=== PATIENT | female | born 1965 | race Caucasian/White ===

== ENCOUNTER 2017-07-12 16:16 | Inpatient (IN) | payer MEDICAID, OTHER ==
--- NOTE | 2017-07-12 18:16 | ED Physician Chart ---
ED Chief Complaint/HPI - Patient Information Date Seen:: 07/12/17 Time Seen:: 16:50 Chief Complaint:: Diarrhea History of Present Illness:: onset x 2 days of multiple episodes of diarrhea, hematochezia, melena, nausea, weakness, dizziness, and intermittent, diffuse, crampy, abdominal pain; pt denies H/As, neck pain, C/P, SOB, cough, A/V/C, fever, chills, or urinary s/s Allergies:: Allergies Allergy/AdvReac Type Severity Reaction Status Date / Time ketorolac [From Toradol] Allergy Verified 07/12/17 16:47 diphenhydramine AdvReac Verified 07/12/17 16:48 [From Benadryl] Vitals:: Vital Signs - 8 hr 07/12/17 16:48 Temp 98.4 F HR 106 RR 16 BP 112/78 O2 Sat % 98 Historian:: Patient, Family Member Review:: Nurse's Note Reviewed <Farrukh Kang - Last Filed: 07/12/17 18:17> - Patient Information Allergies:: Allergies Allergy/AdvReac Type Severity Reaction Status Date / Time ketorolac [From Toradol] Allergy Verified 07/12/17 16:47 diphenhydramine AdvReac Verified 07/12/17 16:48 [From Benadryl] <Tiara Kc - Last Filed: 07/21/17 11:20> ED Review of Systems - Review of Systems General/Constitutional: No fever, No chills, No weight loss, No weakness, No diaphoresis, No edema, No loss of appetite Skin: No skin lesions, No rash, No bruising Head: No headache, No light-headedness Eyes: No loss of vision, No pain, No diplopia ENT: No earache, No nasal drainage, No sore throat, No tinnitus Neck: No neck pain, No swelling, No thyromegaly, No stiffness, No mass noted Cardio Vascular: No chest pain, No palpitations, No PND, No orthopnea, No edema Pulmonary: No SOB, No cough, No sputum, No wheezing GI: Nausea, Vomiting, Diarrhea, Pain, Melena, Hematochezia, No constipation, No hematemesis G/U: No dysuria, No frequency, No hematuria, No nacturia Analytics Director: No vaginal discharge, No abnormal vaginal bleed, No contraction Musculoskeletal: No bone or joint pain, No back pain, No muscle pain Endocrine: Polyuria, Polydipsia Psychiatric: Prior psych history, No depression, Anxiety, No suicidal ideation, No homicidal ideation, No auditory hallucination, No visual hallucination Hematopoietic: No bruising, No lymphadenopathy Allergic/Immuno: No urticaria, No angioedema Neurological: No syncope, No focal symptoms, Weakness, No paresthesia, No headache, No seizure, Dizziness, No confusion, No vertigo <Farrukh Kang - Last Filed: 07/12/17 18:17> ED Past Medical History - Past Medical History Obtainable: Yes Past Medical History: HTN, DM, Thyroid disorder Family History: Diabetes Melitus, HTN Social History: Non Smoker, No Alcohol, No Drug Use, Surgical History: Hysterectomy Psychiatricy History: None, Other Medication: Reviewed <Farrukh Kang - Last Filed: 07/12/17 18:17> Family Medical History - Family Member Father Ethnicity: Living Status: Other Medical History: pna <Tiara Kc - Last Filed: 07/21/17 11:20> ED Physical Exam - Physical Examination General/Constitutional: Awake, Well-developed, well-nourished, Alert, No distress, GCS 15, Non-toxic appearing, Ambulatory Head: Atraumatic Eyes: Lids, conjuctiva normal, PERRL, EOMI Skin: Nl inspection, No rash, No skin lesions, No ecchymosis, Well hydrated, No lymphadenopathy ENMT: External ears, nose nl, TM canals nl, Nasal exam nl, Lips, teeth, gums nl , Oropharynx nl, Tonsils nl Neck: Nontender, Full ROM w/o pain, No JVD, No nuchal rigidity, No bruit, No mass, No stridor Respiratory: Nl effort/Exclusion, Clear to Auscultation, No Wheeze/Rhonchi/Rales Cardio Vascular: RRR, No murmur, gallop, rubs, NL S1 S2, Carotid/Femoral/Distal pulses equal bilaterally GI: No tenderness/rebounding/guarding, No organomegaly, No hernia, Normal BS's, Nondistended, No mass/bruits, No McBurney tenderness : No CVA tenderness Extremities: No tenderness or effusion, Full ROM, normal strength in all extremities, No edema, Normal digits & nails Neuro/Psych: Alert/oriented, DTR's symmetric, Normal sensory exam, Normal motor strength, Judgement/insight normal, Mood normal, Normal gait, No focal deficits Misc: Normal back, No paraspinal tenderness <Farrukh Kang - Last Filed: 07/12/17 18:17> ED Labs/Radiology/EKG Results - Lab Results Results: Laboratory Tests 07/12/17 16:56 POC Glucose 437 H <Farrukh Kang - Last Filed: 07/12/17 18:17> - Lab Results Results: Laboratory Tests 07/12/17 07/12/17 07/12/17 16:56 18:35 18:35 WBC 7.2 RBC 4.17 Hgb 12.7 Hct 38.0 L MCV 91.3 MCH 30.5 MCHC Differential 33.5 RDW 11.8 Plt Count 224 MPV 8.8 Neutrophils % 65.8 Lymphocytes % 25.7 Monocytes % 6.4 Eosinophils % 1.5 Basophils % 0.6 PT 9.0 L INR 0.88 Sodium Potassium Chloride Carbon Dioxide Anion Gap BUN Creatinine Est GFR ( Amer) Est GFR (Non-Af Amer) BUN/Creatinine Ratio Glucose POC Glucose 437 H Hemoglobin A1c % Calcium Total Bilirubin AST ALT Alkaline Phosphatase Creatine Kinase Troponin I B-Natriuretic Peptide Total Protein Albumin Globulin Albumin/Globulin Ratio Triglycerides Cholesterol LDL Cholesterol Direct HDL Cholesterol Amylase Lipase Serum , Qual Urine Source Urine Color Urine Clarity Urine pH Ur Specific [place] Urine Protein Urine Glucose (UA) Urine Ketones Urine Blood Urine Nitrate Urine Bilirubin Urine Urobilinogen Ur Leukocyte Esterase Urine RBC Urine WBC Ur Epithelial Cells Urine Bacteria Urine Test Serum Ketones 07/12/17 07/12/17 07/12/17 18:35 18:35 18:35 WBC RBC Hgb Hct MCV MCH MCHC Differential RDW Plt Count MPV Neutrophils % Lymphocytes % Monocytes % Eosinophils % Basophils % PT INR Sodium 130 L Potassium 4.8 Chloride 98 Carbon Dioxide 23.3 Anion Gap 13.5 BUN 48 H Creatinine 2.4 H Est GFR ( Amer) 27.1 Est GFR (Non-Af Amer) 22.4 BUN/Creatinine Ratio 20.0 Glucose 531 H* POC Glucose Hemoglobin A1c % Calcium 9.2 Total Bilirubin 0.3 AST 11 L ALT 11 Alkaline Phosphatase 105 H Creatine Kinase 35 Troponin I < 0.01 L B-Natriuretic Peptide 6.6 Total Protein 6.6 Albumin 3.9 Globulin 2.7 Albumin/Globulin Ratio 1.4 Triglycerides 393 H Cholesterol 159 LDL Cholesterol Direct 72 L HDL Cholesterol 34 Amylase Lipase Serum , Qual Urine Source Urine Color Urine Clarity Urine pH Ur Specific [place] Urine Protein Urine Glucose (UA) Urine Ketones Urine Blood Urine Nitrate Urine Bilirubin Urine Urobilinogen Ur Leukocyte Esterase Urine RBC Urine WBC Ur Epithelial Cells Urine Bacteria Urine Test Serum Ketones 07/12/17 07/12/17 07/12/17 18:35 18:35 18:35 WBC RBC Hgb Hct MCV MCH MCHC Differential RDW Plt Count MPV Neutrophils % Lymphocytes % Monocytes % Eosinophils % Basophils % PT INR Sodium Potassium Chloride Carbon Dioxide Anion Gap BUN Creatinine Est GFR ( Amer) Est GFR (Non-Af Amer) BUN/Creatinine Ratio Glucose POC Glucose Hemoglobin A1c % Calcium Total Bilirubin AST ALT Alkaline Phosphatase Creatine Kinase Troponin I B-Natriuretic Peptide Total Protein Albumin Globulin Albumin/Globulin Ratio Triglycerides Cholesterol LDL Cholesterol Direct HDL Cholesterol Amylase 47 Lipase 75 Serum , Qual NEGATIVE Urine Source Urine Color Urine Clarity Urine pH Ur Specific [place] Urine Protein Urine Glucose (UA) Urine Ketones Urine Blood Urine Nitrate Urine Bilirubin Urine Urobilinogen Ur Leukocyte Esterase Urine RBC Urine WBC Ur Epithelial Cells Urine Bacteria Urine Test Serum Ketones NEGATIVE 07/12/17 07/12/17 07/12/17 18:35 20:50 20:50 WBC RBC Hgb Hct MCV MCH MCHC Differential RDW Plt Count MPV Neutrophils % Lymphocytes % Monocytes % Eosinophils % Basophils % PT INR Sodium Potassium Chloride Carbon Dioxide Anion Gap BUN Creatinine Est GFR ( Amer) Est GFR (Non-Af Amer) BUN/Creatinine Ratio Glucose POC Glucose Hemoglobin A1c % 12.3 H Calcium Total Bilirubin AST ALT Alkaline Phosphatase Creatine Kinase Troponin I B-Natriuretic Peptide Total Protein Albumin Globulin Albumin/Globulin Ratio Triglycerides Cholesterol LDL Cholesterol Direct HDL Cholesterol Amylase Lipase Serum , Qual Urine Source CLEAN C Urine Color YELLOW Urine Clarity CLEAR Urine pH 5.5 Ur Specific [place] 1.010 Urine Protein NEGATIVE Urine Glucose (UA) >=1000 H Urine Ketones NEGATIVE Urine Blood NEGATIVE Urine Nitrate NEGATIVE Urine Bilirubin NEGATIVE Urine Urobilinogen 0.2 Ur Leukocyte Esterase TRACE H Urine RBC NONE SEEN Urine WBC 2-5 Ur Epithelial Cells NONE SEEN Urine Bacteria NONE SEEN Urine Test NEGATIVE Serum Ketones 07/12/17 22:33 WBC RBC Hgb Hct MCV MCH MCHC Differential RDW Plt Count MPV Neutrophils % Lymphocytes % Monocytes % Eosinophils % Basophils % PT INR Sodium Potassium Chloride Carbon Dioxide Anion Gap BUN Creatinine Est GFR ( Amer) Est GFR (Non-Af Amer) BUN/Creatinine Ratio Glucose POC Glucose 337 H Hemoglobin A1c % Calcium Total Bilirubin AST ALT Alkaline Phosphatase Creatine Kinase Troponin I B-Natriuretic Peptide Total Protein Albumin Globulin Albumin/Globulin Ratio Triglycerides Cholesterol LDL Cholesterol Direct HDL Cholesterol Amylase Lipase Serum , Qual Urine Source Urine Color Urine Clarity Urine pH Ur Specific [place] Urine Protein Urine Glucose (UA) Urine Ketones Urine Blood Urine Nitrate Urine Bilirubin Urine Urobilinogen Ur Leukocyte Esterase Urine RBC Urine WBC Ur Epithelial Cells Urine Bacteria Urine Test Serum Ketones <Tiara Kc - Last Filed: 07/21/17 11:20> ED Assessment - Assessment General Assessment: UTI Uncontrolled DM II Assessment/Comments:: CBC, CMP, UA, HbA1c Zofran Pantoprazole Rocephin Insulin R sliding scale Admit to med surg <Tiara Kc - Last Filed: 07/21/17 11:20> ED Septic Shock - . Is Septic Shock (SBP<90, OR Lactate>4 mmol\L) present?: No - <6hrs of presentation: Vital Signs: Vital Signs - 8 hr 07/12/17 16:48 Temp 98.4 F HR 106 RR 16 BP 112/78 O2 Sat % 98 <Farrukh Kang - Last Filed: 07/12/17 18:17> - . Is Septic Shock (SBP<90, OR Lactate>4 mmol\L) present?: No <Tiara Kc - Last Filed: 07/21/17 11:20> ED Reassessment (Disposition) - Reassessment Reassessment Condition:: Improved - Patient Disposition Discharge/Transfer:: Acute Care w/in this hosp Admitting Medical Physician:: Marybeth Jackson <Tiara Kc - Last Filed: 07/21/17 11:20> ED Discharge Plan <Farrukh Kang - Last Filed: 07/12/17 18:17> <Tiara Kc - Last Filed: 07/21/17 11:20> - Patient Disposition Admit/Discharge/Transfer: Acute Care w/in this hosp Condition at Disposition: Stable
[2017-07-12] MEDS ORDERED: Sodium Chloride 0.9% 1,000 ML IV ONE (18:21)
[2017-07-12 18:42] LABS: % BASOPHILS 0.6 % (0.0-2.0); % EOSINOPHILS 1.5 % (0.0-5.0); % LYMPHOCYTES 25.7 % (20.0-50.0); % MONOCYTES 6.4 % (2.0-10.0); % NEUTROPHILS 65.8 % (40.0-80.0); EOSINOPHILE ABSOLUTE 0.1 Th/cmm (0.1-0.4); HEMOGLOBIN 12.7 gm/dL (12-16); LYMPHOCYTE ABSOLUTE 1.9 Th/cmm (1.5-3.0); MEAN CELL VOLUME 91.3 fl (81-100); MEAN CORPUSCULAR HEMOGLOBIN 30.5 pg (27.0-31.0); MEAN CORPUSCULAR HGB CONC 33.5 pg (28.0-36.0); MEAN PLATELET VOLUME 8.8 fl; MONOCYTE ABSOLUTE 0.5 Th/cmm (0.3-1.0); NEUTROPHILE ABSOLUTE 4.7 Th/cmm (1.8-8.0); PLATELET COUNT 224 Th/cmm (150-400); RED BLOOD COUNT 4.17 Mil/cmm (3.80-5.10); RED CELL DISTRIBUTION WIDTH 11.8 % (11.5-20.0); WHITE BLOOD COUNT 7.2 Th/cmm (4.8-10.8)
[2017-07-12 18:57] LABS: INR 0.88 (0.5-1.4)
[2017-07-12 19:01] LABS: ALB/GLOB RATIO 1.4 (1.0-1.8); ALBUMIN 3.9 gm/dL (3.7-5.3); AMYLASE SERUM 47 U/L (29-103); ANION GAP 13.5 (7.0-16.0); BILIRUBIN,TOTAL 0.3 mg/dL (0.3-1.0); CALCIUM SERUM 9.2 mg/dL (8.6-10.3); CARBON DIOXIDE 23.3 mEq/L (21.0-31.0); CREATININE - SERUM 2.4 mg/dL (0.6-1.2); GFR AFRICAN-AMERICAN 27.1 ml/min (>90); GFR NON AFRICAN-AMERICAN 22.4 ml/min; LIPASE 75 U/L (11-82); POTASSIUM SERUM 4.8 mEq/L (3.5-5.1); TOTAL PROTEIN,SERUM 6.6 gm/dL (6.0-8.3)
[2017-07-12] MEDS ORDERED: INSULIN HUMAN REGULAR 100 UNITS/ML UNIT SUBQ ONE (19:23)
[2017-07-12] MEDS ORDERED: INSULIN HUMAN REGULAR 100 UNITS/ML UNIT ONE (20:18)
[2017-07-12 21:07] LABS: URINE MICROSCOPIC INDICATED? YES; URINE SOURCE CLEAN C
[2017-07-12 21:13] LABS: URINE BILIRUBIN NEGATIVE (NEGATIVE); URINE BLOOD NEGATIVE (NEGATIVE); URINE GLUCOSE (UA) >=1000 mg/dL (NEGATIVE); URINE KETONE NEGATIVE (NEGATIVE); URINE LEUKOCYTE ESTERASE TRACE (NEGATIVE); URINE NITRATE NEGATIVE (NEGATIVE); URINE PH 5.5 (4.6 - 8.0); URINE PROTEIN NEGATIVE (NEGATIVE); URINE UROBILINOGEN 0.2 E.U./dL (0.2 - 1.0)
[2017-07-12 21:37] LABS: URINE CLARITY CLEAR (CLEAR); URINE COLOR YELLOW
[2017-07-12 21:40] LABS: URINE BACTERIA NONE SEEN /hpf (NONE SEEN); URINE EPITHELIAL CELLS NONE SEEN /lpf (FEW); URINE RBC NONE SEEN /hpf (0-5)
[2017-07-12] MEDS ORDERED: cefTRIAXone 1 GM in Sodium Chloride 0.9% 50 ML IV ONE (22:04)
[2017-07-12] MEDS ORDERED: Sodium Chloride 0.9% 1,000 ML IV SCH (23:20)
--- NOTE | 2017-07-13 05:26 | Consultation ---
DATE OF CONSULTATION: 07/12/2017 INFECTIOUS DISEASE CONSULTATION REFERRING PHYSICIAN: Marybeth Jackson M.D. REASON FOR CONSULTATION: Diarrhea. HISTORY OF PRESENT ILLNESS: The patient is a 52-year-old female with a past medical history of hypertension, diabetes mellitus type 2, thyroid disorder, admitted for multiple episodes of diarrhea, it was associated with intermittent crampy abdominal pain. On initial evaluation, the patient was afebrile and WBC count was 7200. The patient was started on Rocephin and ID consult was called for further antibiotic management. Currently, the patient's diarrhea has stopped. The patient also looks hungry. PAST MEDICAL HISTORY: Diabetes mellitus type 2, hypertension, and thyroid disorder. ALLERGIES: KETOROLAC AND DIPHENHYDRAMINE. SOCIAL HISTORY: The patient lives at home. The patient is active smoker. Denies any alcohol or drug use. FAMILY HISTORY: Hypertension and diabetes mellitus. REVIEW OF SYSTEMS: GENERAL: The patient has no fever, no chills. HEENT: No diplopia, no photophobia, no sore throat. RESPIRATORY: No cough, no shortness of breath. CARDIOVASCULAR: No chest pain or palpitation. GASTROINTESTINAL: The patient has no abdominal pain. The patient is presented with diarrhea and crampy abdominal pain, which has resolved. EXTREMITIES: No cyanosis. MUSCULOSKELETAL: No muscle pain, no joint pain. NEUROLOGICAL: No headache, no dizziness, no focal weakness. PHYSICAL EXAMINATION: VITAL SIGNS: Current vital signs shows temperature is 98.4 degrees Fahrenheit, pulse 85, respirations is 13, blood pressure 122/83, oxygen saturation 98%. GENERAL: The patient is comfortable lying in the bed, not in acute distress. HEENT: Head is normocephalic, atraumatic. Oral cavity moist, pink tongue. Eyes: No pallor, no icterus. Pupils PERRLA, EOMI. NECK: Supple, no JVD, no carotid bruit. Trachea in midline. CHEST: Bilateral breath sounds. No crackles or wheezing. HEART: S1, S2 within normal limits. Regular rhythm. No murmur, no gallop. ABDOMEN: Soft, nontender, nondistended. Bowel sounds present. EXTREMITIES: No cyanosis, no clubbing, no edema. NEUROLOGIC: Alert, awake, oriented x 3. LABORATORY DATA: Current lab shows WBC count is 7200, hemoglobin 12.7, hematocrit 38, platelets are 224,000, neutrophil is 65.8%. Sodium is 130, potassium 4.8, chloride 98, bicarbonate is 23.3, BUN is 48, creatinine 2.4, glucose is 531. LFTs reviewed. Serum test is negative. Urinalysis, clear urine, trace leukocyte, wbc's 2-5, bacteria none. Serum ketone negative. IMPRESSION: 1. Diarrhea, which has resolved, may have gastroenteritis. 2. Uncontrolled diabetes mellitus. 3. History of hypertension. 4. Mild urinary tract infection. 5. Thyroid disorder RECOMMENDATION/S: Continue Rocephin. Gastroenteritis, resolved. I will wait for the further workup and decide final therapy. If there is no event, no diarrhea, may discharge the patient off antibiotic. Thank you, Dr. Jackson for involving me in taking care of this patient. JOB# [id number]
[2017-07-13] MEDS ORDERED: INSULIN ASPART, RECOMBINANT 100 UNITS/ML SUBQ SCH (07:30)
[2017-07-13 15:43] LABS: A1C % 12.3 % (4.0-6.0)
[2017-07-13] MEDS ORDERED: cefTRIAXone 1 GM in Sodium Chloride 0.9% 50 ML IV SCH (23:00)
== END 2017-07-13 06:50 | disposition left against medical advice (07) | DRG 249 ==
LOC: ER 16:16 → TELE 23:20
PROVIDERS: ADMIT Internal Medicine; ATTEND Internal Medicine
DX: K52.9 Noninfective gastroenteritis and colitis, unspecified (principal); E87.1 Hypo-osmolality and hyponatremia; E07.9 Disorder of thyroid, unspecified; E11.9 Type 2 diabetes mellitus without complications; I10 Essential (primary) hypertension; N39.0 Urinary tract infection, site not specified; K92.1 Melena; Z53.21 Procedure and treatment not carried out due to patient leaving prior to being seen by health care provider; Z88.8 Allergy status to other drugs, medicaments and biological substances; Z83.3 Family history of diabetes mellitus; Z82.49 Family history of ischemic heart disease and other diseases of the circulatory system; Z90.710 Acquired absence of both cervix and uterus
CPT/HCPCS: 36415-UA; 80053-TC; 80061-TC; 81001-TC; 81025-TC; 82010-TC; 82150-TC; 82550-TC; 82948-90; 83036-90; 83690-TC; 83880-TC; 84484-TC; 84703-TC; 85025-TC; 85610-TC; 87230-TC; 93005; 96375; C9113; J0696; J1815; J1885; J2405; J7030